=== PATIENT | female | born 1950 | race Caucasian/White ===

== ENCOUNTER 2023-09-28 10:53 | Observation (INO) ==
[2023-09-28 15:37] LABS: ABS Lymphocytes 1.1 10^3/uL (1.0-4.8); ABS Monocytes 0.4 10^3/uL (0.0-0.9); ABS Neutrophils 2.5 10^3/uL (1.5-7.6); Eosinophil % 0.1 %; Hemoglobin 12.6 g/dL (11.5-14.3); Lymphocyte % 27.5 %; Mean Corpuscular Hemoglobin 33.1 pg (27-33); Mean Corpuscular Volume 97.2 fL (80-97); Mean Platelet Volume 8.8 fL (7.5-11.2); Nucleated Red Blood Cells % 0.1 %/100WBC (0.0-0.8); Platelet Count 183 10^3/uL (150-450); Red Cell Distribution Width 13.8 % (12-17); White Blood Count 4.1 10^3/uL (3.8-11.8)
[2023-09-28 16:22] LABS: Albumin 3.9 g/dL (3.2-5.2); Albumin/Globulin Ratio 1.9 (1-3); C Reactive Protein 2.94 mg/L (<8.01); Calcium 9.4 mg/dL (8.6-10.3); Creatinine, Serum 0.84 mg/dL (0.51-0.95); Globulin 2.1 g/dL (2-4); Magnesium 2.2 mg/dL (1.9-2.7); Phosphorus 3.5 mg/dL (2.5-5.0); Potassium 4.1 mmol/L (3.5-5.0); Total Bilirubin 0.7 mg/dL (0.2-1.0); eGFR CKD-EPI 73.3 (>60)
[2023-09-28] MEDS: Lactated Ringers 1000 ml BAG 1,000 ML IV ONE (16:29)
[2023-09-28] MEDS: Lactated Ringers 1000 ml BAG 1,000 ML IV SCH (18:42)
[2023-09-28] MEDS: Enoxaparin 40 MG/0.4 ML SYR SUBCUT SCH (18:43)
[2023-09-28 20:49] LABS: Erythrocyte Sed Rate 39 mm/Hr (0-29)
[2023-09-29] LABS: Urine Appearance Clear; Urine Bilirubin Negative (Negative); Urine Blood Negative (Negative); Urine Color Colorless; Urine Glucose Negative (Negative); Urine Ketones Negative (Negative); Urine Nitrite Negative (Negative); Urine Protein Negative (Negative); Urine Specific Gravity 1.009 (1.002-1.030); Urine Urobilinogen Negative (Negative); Urine pH 7.5 (5.0-8.0)
[2023-09-29 06:07] LABS: ABS Lymphocytes 1.3 10^3/uL (1.0-4.8); ABS Monocytes 0.4 10^3/uL (0.0-0.9); ABS Neutrophils 2.1 10^3/uL (1.5-7.6); Eosinophil % 0.5 %; Hematocrit 37.3 % (35-45); Hemoglobin 12.7 g/dL (11.5-14.3); Lymphocyte % 34.1 %; Mean Corpuscular Hemoglobin 32.9 pg (27-33); Mean Corpuscular Volume 96.9 fL (80-97); Mean Platelet Volume 8.7 fL (7.5-11.2); Nucleated Red Blood Cells % 0.1 %/100WBC (0.0-0.8); Platelet Count 176 10^3/uL (150-450); Red Blood Count 3.85 10^6/uL (3.63-4.92); Red Cell Distribution Width 13.2 % (12-17); White Blood Count 3.9 10^3/uL (3.8-11.8)
[2023-09-29 07:03] LABS: Calcium 9.1 mg/dL (8.6-10.3); Creatinine, Serum 0.74 mg/dL (0.51-0.95); Potassium 4.1 mmol/L (3.5-5.0); eGFR CKD-EPI 85.4 (>60)
[2023-09-29 07:07] LABS: CKMB ng/mL 14.1 ng/mL (0.6-6.3)
[2023-09-29] MEDS ORDERED: Lactated Ringers 1000 ml BAG 1,000 ML IV ONE (10:36)
[2023-09-29 13:11] VITALS: BP 124/80
== END 2023-09-29 13:11 | disposition left against medical advice (07) ==
LOC: ED 10:53 → EDHOLD 10:53
PROVIDERS: ADMIT Student in an Organized Health Care Education/Training Program; ATTEND Student in an Organized Health Care Education/Training Program

== ENCOUNTER 2024-02-16 15:35 | Observation (INO) ==
[2024-02-16 18:06] LABS: ABS Lymphocytes 0.5 10^3/uL (1.0-4.8); ABS Neutrophils 10.1 10^3/uL (1.5-7.6); Hematocrit 38.4 % (35-45); Hemoglobin 12.8 g/dL (11.5-14.3); Lymphocyte % 4.3 %; Mean Corpuscular Hemoglobin 32.2 pg (27-33); Mean Corpuscular Hgb Conc 33.2 g/dL (31-36); Mean Corpuscular Volume 97.1 fL (80-97); Mean Platelet Volume 9.2 fL (7.5-11.2); Platelet Count 192 10^3/uL (150-450); Red Blood Count 3.96 10^6/uL (3.63-4.92); Red Cell Distribution Width 15.2 % (12-17); White Blood Count 11.6 10^3/uL (3.8-11.8)
[2024-02-16 18:38] LABS: Albumin 4.3 g/dL (3.2-5.2); Albumin/Globulin Ratio 1.9 (1-3); Calcium 10.8 mg/dL (8.6-10.3); Creatinine, Serum 1.11 mg/dL (0.51-0.95); Globulin 2.3 g/dL (2-4); Magnesium 2.4 mg/dL (1.9-2.7); Potassium 4.3 mmol/L (3.5-5.0); Total Bilirubin 1.2 mg/dL (0.2-1.0); Total Protein 6.6 g/dL (6.4-8.9); eGFR CKD-EPI 52.2 (>60)
[2024-02-16 18:43] LABS: TSH Ultra Thyroid Stim Horm 1.82 mcIU/mL (0.34-5.60)
[2024-02-16 19:24] LABS: High Sensitivity Troponin 1 Hr 66 pg/mL (<15)
[2024-02-16 19:29] LABS: Urine Appearance Turbid; Urine Bilirubin Negative (Negative); Urine Blood 3+ (Negative); Urine Glucose Negative (Negative); Urine Ketones Negative (Negative); Urine Nitrite Negative (Negative); Urine Protein 1+ (>=30 mg/dL) (Negative); Urine Specific Gravity 1.021 (1.002-1.030); Urine Urobilinogen Negative (Negative)
[2024-02-16 19:58] LABS: Urine Bacteria 1+ /HPF (Absent); Urine Red Blood Cell 1+(3-5/hpf) /HPF (0-Trace); Urine Squamous Epithelial Cell Present /HPF (Absent); Urine White Blood Cell 2+(11-20/hpf) /HPF (0-Trace)
[2024-02-16] MEDS: cefTRIAXone 1 gm/50 mL D5W 1 GM/50 ML BAG IV ONE (20:16)
[2024-02-16 20:27] LABS: Urine Color Dark-Yellow
[2024-02-16 20:43] LABS: High Sensitivity Troponin 3 Hr 66 pg/mL (<15)
[2024-02-16 22:08] LABS: C Reactive Protein 2.36 mg/L (<8.01)
[2024-02-16] MEDS: Lactated Ringers 1000 ml BAG 1,000 ML IV ONE (22:14)
[2024-02-17] MEDS: Lactated Ringers 1000 ml BAG 1,000 ML IV ONE ×2 (04:12→12:00)
[2024-02-17 06:46] LABS: Calcium 8.9 mg/dL (8.6-10.3); Creatinine, Serum 0.94 mg/dL (0.51-0.95); Potassium 3.7 mmol/L (3.5-5.0); eGFR CKD-EPI 63.7 (>60)
[2024-02-17 07:45] LABS: Albumin 3.4 g/dL (3.2-5.2); Albumin/Globulin Ratio 1.9 (1-3); Globulin 1.8 g/dL (2-4); Total Bilirubin 1.1 mg/dL (0.2-1.0); Total Protein 5.2 g/dL (6.4-8.9)
[2024-02-17] MEDS: VALBENAZINE 40 MG PO SCH (08:34)
[2024-02-17] MEDS: cefTRIAXone 1 gm/50 mL D5W 1 GM/50 ML BAG IV SCH (21:29)
[2024-02-18 11:22] LABS: ABS Monocytes 0.6 10^3/uL (0.0-0.9); Eosinophil % 0.3 %; Hematocrit 38.1 % (35-45); Hemoglobin 12.7 g/dL (11.5-14.3); Lymphocyte % 14.5 %; Mean Corpuscular Hgb Conc 33.3 g/dL (31-36); Mean Corpuscular Volume 96.1 fL (80-97); Mean Platelet Volume 9.2 fL (7.5-11.2); Platelet Count 185 10^3/uL (150-450); Red Blood Count 3.96 10^6/uL (3.63-4.92); Red Cell Distribution Width 15.5 % (12-17); White Blood Count 6.6 10^3/uL (3.8-11.8)
[2024-02-18 11:43] LABS: Calcium 9.4 mg/dL (8.6-10.3); Creatinine, Serum 0.77 mg/dL (0.51-0.95); eGFR CKD-EPI 80.9 (>60)
[2024-02-18] MEDS ORDERED: Lactated Ringers 1000 ml BAG 1,000 ML IV SCH (13:00)
[2024-02-18 13:21] VITALS: BP 120/60
== END 2024-02-18 16:40 | disposition home or self-care (01) ==
LOC: EDHOLD 15:35 → ED 15:35 → MEDTELE 02-17 14:46
PROVIDERS: ADMIT Hospitalist; ATTEND Hospitalist